=== PATIENT | male | born 1935 | race Caucasian/White ===

== ENCOUNTER → 2017-01-09 | Outpatient (CLI) | payer MEDICARE, BC ==
[~2017-01-09] MED LIST: COLACE100 MG PO; COUMADIN 4MG **4 MG PO; COZAAR25 MG PO; EFFEXOR XR150 MG PO; FISH OIL 1,0001 EACH PO; FLOMAX0.4 MG PO; K-TAB ER20 MEQ PO; LASIX40 MG PO; LIPITOR40 MG PO; LOPRESSOR25 MG PO; LOVAZA1 GM PO; MILK OF MA400 MG/5 M PO; PEPCID20 MG PO; TYLENOL EXTRA500 MG PO; VITAMIN D-32000 UNI1 PO; WELLBUTRIN XL300 M1 PO
== END | disposition disaster alternative care site (69) ==
LOC: GRAD 01-06 13:00
DX: R10.9 Unspecified abdominal pain (principal); K57.30 Diverticulosis of large intestine without perforation or abscess without bleeding; R91.8 Other nonspecific abnormal finding of lung field; I51.7 Cardiomegaly; Z96.89 Presence of other specified functional implants